=== PATIENT | female | born 2005 | race Caucasian/White ===

== ENCOUNTER 2024-01-02 12:24 | Emergency (ER) | payer SELFPAY ==
[~2024-01-02] VITALS: Ht 152.4 cm; Wt 46.7 kg
[2024-01-02 12:32] VITALS: BP 101/64; PULSE 87; RESP 16; TEMP 97.6; O2SAT 98
[2024-01-02] MEDS: ONDANSETRON 4 MG ODT PO ONE (13:00)
[2024-01-02] MEDS ORDERED: IBUP-1842 PO (13:54)
[2024-01-02] MEDS ORDERED: ONDA-188 SL (13:54)
[2024-01-02 14:11] VITALS: BP 101/64; PULSE 87; RESP 16; TEMP 97.6; O2SAT 98
== END 2024-01-02 14:08 | disposition home or self-care (01) ==
LOC: MED 12:24
DX: S93.491A Sprain of other ligament of right ankle, initial encounter (principal); S06.0X0A Concussion without loss of consciousness, initial encounter; W18.30XA Fall on same level, unspecified, initial encounter; Y93.89 Activity, other specified; Y92.89 Other specified places as the place of occurrence of the external cause; Y99.8 Other external cause status
CPT/HCPCS: 70450; 73610; 81025; 99284; Q0162